=== PATIENT | male | born 1980 | race Caucasian/White ===

== ENCOUNTER 2019-12-03 20:03 | Emergency (ER) | payer SELFPAY ==
--- NOTE | 2019-12-03 20:09 | ED_ITS ---
Entered by Ashley May, acting as scribe for Ira Kerns MD HPI - Psych General: Stated Complaint: si Time Seen by Provider: 12/03/19 20:08 Coding Level of Care Code ED Professor Of Geology for Andreia Avalos
== END 2019-12-03 20:23 | disposition home or self-care (01) ==
LOC: ER 12-14 11:06
PROVIDERS: Emergency Provider Emergency Medicine
DX: Z53.21 Procedure and treatment not carried out due to patient leaving prior to being seen by health care provider (principal)
CPT/HCPCS: 99281

== ENCOUNTER 2019-12-03 20:24 | Inpatient (IN) | payer SELFPAY ==
[2019-12-03 21:11] VITALS: BP 129/90; PULSE 97; RESP 18; TEMP 37.1; O2SAT 99
[2019-12-03 21:14] VITALS: BMI 29.2
--- NOTE | 2019-12-03 21:59 | PC.NURSE ---
ADMISSION UPON ARRIVAL TO THE UNIT PT'S FAMILY BEGAN CALLING WANTING INFORMATION ON THE PT. PT HAD NOT FILLED OUT AUTHORIZATION TO RELEASE INFORMATION FORM OF YET. WHEN I TRIED TO EXPLAIN TO THE PT'S SISTER I COULD NOT CONFIRM OR DENY IF HER BROTHER WAS HERE, SHE BECAME VERY AGITATED TELLING ME I DID NOT NEED TO BE RUDE. I AGAIN TRIED TO EXPLAIN TO THE PT'S SISTER DUE TO PT PRIVACY/SAFETY I COULD NOT CONFIRM OR DENY IF PT IS HERE. I ASKED PT'S SISTER TO CALL BACK IN ABOUT 15 MINUTES. SHE BECAME VERY UPSET STATING THAT SHE WANTED TO TALK TO SOMEONE IN CHARGE. KELSIE PACKAGE COLLECTOR SPOKE TO FAMILY. ( SEE KELSIE'S NOTE) PT HAS BEEN AT THE NURSES STATION WANTING FIRST AND LAST NAMES AND TITLES AND BECOMING UPSET WHEN WE WOULD NOT GIVE HIM LAST NAMES. PT WAS OFFERED TRAZODONE FOR SLEEP AID BUT REFUSED STATING HE WAS ALLERGIC AFTER NKA WERE CONFIRMED WITH PATIENT. WILL CONTINUE TO MONITOR.
[2019-12-03 22:00] VITALS: BP 129/90; PULSE 97; RESP 18; TEMP 36.7; O2SAT 99
--- NOTE | 2019-12-03 22:17 | PC.NURSE ---
Patient had a family member call by the name of Laura but has a different [facility] name [facility] so stated can not confirm or deny.
[2019-12-03] MEDS: trazodone 50 mg Tablet PO (22:26)
[2019-12-03] MEDS: nicotine 2 mg Gum BUCCAL (22:26)
[2019-12-03] MEDS: LORazepam 2 mg Tablet PO (22:42)
--- NOTE | 2019-12-03 22:43 | PC.NURSE ---
PRN ATIVAN ATIVAN 2 MG PO GIVEN PER CIWA PROTOCOL. CIWA SCORE 12
--- NOTE | 2019-12-03 22:43 | PC.NURSE ---
Patient had a family member call and the AUGER PRESS OPERATOR did not have his HIPPA information which he had just signed. She requested to speak to charge nurse and I reassured her we have to protect patient privacy and now that have his permission we gave her information. Them 10 minutes later the Licensed Master Social Worker called and stated she had just called her and she gave her the same information.
[2019-12-03] MEDS: quetiapine 100 mg Tablet 200 MG PO (23:44)
--- NOTE | 2019-12-03 23:47 | PC.NURSE ---
PRN TRAZODONE 10/02/20 2289 PT REQUESTING PRN TRAZODONE FOR SLEEP. I VERIFIED WITH PT THAT HE WAS NOT ALLERGIC TO TRAZODONE AND HE ADMITTED HE LIED TO ME EARLY. HE IS NOT ALLERGIC TO TRAZOONE. PT RESTING QUIETLY IN BED, RESPIRATIONS EVEN AND UNLABORED. WILL CONTINUE TO MONITOR.
[2019-12-04 06:00] VITALS: BP 100/63; PULSE 77; RESP 19; TEMP 36.1; O2SAT 96
[2019-12-04] MEDS: hyDROXYzine 25 mg Capsule 50 MG PO ×2 (07:49→17:21)
[2019-12-04] MEDS: thiamine 100 mg Tablet PO (08:03)
[2019-12-04] MEDS: multivitamin therapeutic Tablet 1 TAB PO (08:03)
[2019-12-04] MEDS: folic acid 1 mg Tablet PO (08:03)
[2019-12-04] MEDS: citalopram 20 mg Tablet 40 MG PO (08:03)
[2019-12-04] MEDS: nicotine 2 mg Gum BUCCAL ×3 (09:05→17:24)
--- NOTE | 2019-12-04 09:05 | P.HP_ITS ---
Providers/Chief Complaint Admitting Physician: Pankaj Rowland MD Chief Complaint: SI HPI NPU History of Present Illness Chief complaint: I tried it on my own but it didn't work. I can't manage my job anymore. I'm a Functional alcoholic History of present illness:nivia Fontaine is a 39 year old male Who has been drinking regularly most of his life. It has worsened over month. He has endured significant losses. He is estranged from his and his 4-year-old daughter who lives in [place]. He came to live with his mother in [place] last year. 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 He has continued to maintain his level of function and maintain employment even while drinking on a daily basis. However 30 days ago, for unclear reasons, he began binge drinking. He has been living in a motel. He has been on a liquid diet drinking about a fifth of vodka daily. There have been times when it was his intent to drink himself to . He was hopeless and overwhelmed. He could not sleep at night without the use of Seroquel. He engages in no enjoyable activities. He is irritable. He is drunk most of the time. He is not able to assess the severity of his depressive symptoms compared to when he has been sober because he has not been sober for any considerable period of time most of his adult life. He was hospitalized for 1 week over 2 years ago. However he has never been into a rehabilitation program and has never participated in any type of formal program to attain and maintain sobriety. He denies active suicidal or homicidal ideation today. He does have a history of experiencing auditory and visual hallucinations when going through alcohol withdrawal. There is no history of seizures. His urine drug screen was positive for methamphetamine. He says he has used it a couple times in the past that it is not a regular activity and is not why he needs to help. Mental health history:He has 1 prior inpatient hospitalization 2 years ago for 1 week that was to establish his sobriety. However he did not have a follow-up treatment program and quickly went back to daily drinking. There is no history of suicide attempts. Family psychiatric history is negative. Social history:The patient grew up in [place]. His and daughter remain there. His mother lives in [place]. Legal history: The patient states that he has no outstanding warrants. Public record has multiple arrests From 1997 through 2013. There have been none since 2013. Arrest include 2 DWIs, 4 third degree domestic assault charges, Trespassing and resisting arrest.. Past medical history:The patient generally reports himself as being generally in good medical health.Drug screen was positive for amphetamines but otherwise clean. He is listed as having no active inpatient medications but reports that he had been taking Celexa and Seroquel in the past. He has no known drug allergies. CBC is within normal limits. Routine chemistries also within normal limits. WBC is mildly elevated at 13.6. Liver enzymes are generally within normal limits with the exception of a minimally elevated alkaline phosphatase of 135.Creatinine level is low at 0.6. Review of Systems Constitutional: Complains of: Fatigue Eyes: Complains of: No eye symptoms ENT/Mouth: Complains of: No ENTM symptoms Cardiovascular: Complains of: No cardiac symptoms Respiratory: Complains of: No respiratory symptoms GI: Complains of: No GI symptoms Neuro: Complains of: No neuro symptoms Musculoskeletal: Complains of: No musculoskeletal symptoms Skin: Complains of: No skin symptoms Hematologic/Lymphatic: Complains of: No hematologic/lymphatic symptoms Endocrine: Complains of: No endocrine symptoms : Complains of: No symptoms Psych: Complains of: Depression, Denied currentSuicide ideation Mental Status Exam: The patient is alert interpersonally engaged male appearing approximately his stated age. Eye contact is good. He is believed to be a reliable informant to the extent that information provided is internally consistent and generally consistent with that in the chart with the exception of legal history in the distant past. Appearance: hygiene is fair; no gross neurological deficits., gait is unremarkable; AIMS=0 Speech: Speech is of normal rate and rhythm and easily understood. Thought processes: Thought processes are abstract. Judgment is adequate for safety. Associations: intact Psychotic processes: There is no indication of guarding or paranoia. There is no attention to the internal stimuli. Auditory and visual hallucinations are denied. Judgment: Insight is fair. Problem solving skills are adequate for safety. Orientation: The patient is oriented to person, place time and situation. Memory: no deficits noted in immediate, intermediate, or remote spheres. Attention: The patient is alert and interpersonally engaged. Language: Verbalizations are coherent. Fund of knowledge: Fund of knowledge is adequate. Affect/Mood: Affect is consistent with a depressed mood. He denied current suicidal ideation Affective range Constricted Psychosis: perception unimpaired except through cognitive distortion; reality testing intact. 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 We initiated discussion regarding the need for a rehabilitation strategy but stated that this decision would be deferred until he were here for a couple of days and was in better medical condition and cognitive condition to make those judgments. Treatment plan: Due to the psychiatric conditions and treatment listed in the Assessment and Plan - the patient requires continued hospitalization. Will provide a safe and therapeutic environment for patient.. Will continue inpatient treatment to allow for medication adjustment and monitoring. Will continue q15 min safety checks. The intent this time is to manage his alcohol withdrawal. He has been placed on the CIWA protocol. In addition we will start lorazepam 1 mg 3 times a day and taper it over the next 4 days. Gabapentin 600 mg at bedtime and started to assist with sleep. Seroquel 100 mg is to be given as needed for hallucinations. Monitor patient's mood, sleep, appetite, and behavior closely. Encourage patient to participate in individual and group therapeutic sessions on the [facility]. Estimated length of stay 5 days The expected benefits and potential side effects of patient's psychiatric medications were discussed with the patient. The patient understands and consents to treatment.CRITERIA FOR DISCHARGE: stable on medications and no longer an imminent risk to self or others. Meds NPU Home Medications Medication Instructions Recorded Confirmed Type citalopram 40 mg PO DAILY 12/03/19 12/03/19 History hydroxyzine pamoate 100 mg PO QID 12/03/19 12/03/19 History quetiapine [Seroquel] 200 mg PO BEDTIME 12/03/19 12/03/19 History Allergies Allergy/AdvReac Type Severity Reaction Status Date / Time No Known Allergies Allergy Verified 12/03/19 21:18 PFS NPU PFSH: Social History Smoking and tobacco status: current every day smoker cigarettes Vitals/I&O/Wt Last Vital Signs Temp 96.9 F L 12/04/19 06:00 Pulse 77 12/04/19 06:00 Resp 19 H 12/04/19 06:00 BP 100/63 12/04/19 06:00 Pulse Ox 96 12/04/19 06:00 Weight last 48 hrs Weight 95.254 kg A&P Additional A&P Information Diagnoses: Alcohol dependence Alcohol intoxication 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 We initiated discussion regarding the need for a rehabilitation strategy but stated that this decision would be deferred until he were here for a couple of days and was in better medical condition and cognitive condition to make those judgments. Treatment plan: Due to the psychiatric conditions and treatment listed in the Assessment and Plan - the patient requires continued hospitalization. Will provide a safe and therapeutic environment for patient.. Will continue inpatient treatment to allow for medication adjustment and monitoring. Will continue q15 min safety checks. The intent this time is to manage his alcohol withdrawal. He has been placed on the CIWA protocol. In addition we will start lorazepam 1 mg 3 times a day and taper it over the next 4 days. Gabapentin 600 mg at bedtime and started to assist with sleep. Seroquel 100 mg is to be given as needed for hallucinations. Monitor patient's mood, sleep, appetite, and behavior closely. Encourage patient to participate in individual and group therapeutic sessions on the [facility]ov[facility]. Estimated length of stay 5 days The expected benefits and potential side effects of patient's psychiatric medications were discussed with the patient. The patient understands and consents to treatment.CRITERIA FOR DISCHARGE: stable on medications and no longer an imminent risk to self or others. Involuntary Hold Information 96 Hour Hold: 96 Hour Involuntary Admission: No Attestations NPU Medical Necessity Statement*: Patient will remain in the hospital for more nights for alcohol withdrawal protocol. Coding Level of Care Code Acute Data Technician for Andreia Avalos
[2019-12-04] MEDS: quetiapine 100 mg Tablet PO ×2 (09:30→21:51)
[2019-12-04] MEDS: LORazepam 1 mg Tablet PO ×3 (09:30→21:23)
[2019-12-04 14:00] VITALS: BP 142/94; O2SAT 98
[2019-12-04 21:09] VITALS: BP 112/73; PULSE 91; RESP 19; TEMP 37.1; O2SAT 95
[2019-12-04] MEDS: gabapentin 300 mg Capsule 600 MG PO (21:23)
[2019-12-04] MEDS: trazodone 50 mg Tablet PO (21:51)
[2019-12-05 06:00] VITALS: BP 117/88; PULSE 116; RESP 20; TEMP 36.6; O2SAT 93
[2019-12-05] MEDS: OLANZapine ODT 5 MG TABLET PO (06:21)
[2019-12-05] MEDS: multivitamin therapeutic Tablet 1 TAB PO (09:06)
[2019-12-05] MEDS: folic acid 1 mg Tablet PO (09:06)
[2019-12-05] MEDS: LORazepam 1 mg Tablet PO (09:06)
[2019-12-05] MEDS: thiamine 100 mg Tablet PO (09:06)
[2019-12-05] MEDS: quetiapine 100 mg Tablet PO (09:21)
--- NOTE | 2019-12-05 09:21 | PC.NURSE ---
Addendum entered by Cindy Rosa LPN 12/05/19 12:01: prn med effective no further c/o anxiety Original Note: PRN SEROQUEL 100 MG GIVEN PO PER PT C/O INCREASED ANXIETY. TEARFUL AT THE NURSES STATION. WILL CONT TO MONITOR
[2019-12-05] MEDS: hyDROXYzine 25 mg Capsule 50 MG PO (12:20)
--- NOTE | 2019-12-05 12:20 | PC.NURSE ---
Addendum entered by Cindy Rosa LPN 12/05/19 13:44: prn med effective no further c/o anxiety, pt asleep in bed in room currently Original Note: PRN VISTARIL 50 MG GIVEN PO PER PT C/O ANXIETY. WILL CONT TO MONITOR
[2019-12-05 13:55] VITALS: BP 110/64; PULSE 110; RESP 19; TEMP 36.8; O2SAT 95
--- NOTE | 2019-12-05 14:51 | PM.NPN ---
Subjective NPU Subjective: Interval history: I feel very badly. I need something to keep me going on my journey. I don't want to get angry and t hen leave in the middle like the other times. Wants more Ativanand then seroquel 200 mg at bedtime. Mental Status Exam MSE Comments: Mental Status Exam: The patient is alert interpersonally engaged male appearing approximately his stated age. Eye contact is good. He is believed to be a reliable informant to the extent that information provided is internally consistent and generally consistent with that in the chart with the exception of legal history in the distant past. Appearance: hygiene is fair; no gross neurological deficits., gait is unremarkable; AIMS=0 Speech: Speech is of normal rate and rhythm and easily understood. Thought processes: Thought processes are abstract. Judgment is adequate for safety. Associations: intact Psychotic processes: There is no indication of guarding or paranoia. There is no attention to the internal stimuli. Auditory and visual hallucinations are denied. Judgment: Insight is fair. Problem solving skills are adequate for safety. Orientation: The patient is oriented to person, place time and situation. Memory: no deficits noted in immediate, intermediate, or remote spheres. Attention: The patient is alert and interpersonally engaged. Language: Verbalizations are coherent. Fund of knowledge: Fund of knowledge is adequate. Affect/Mood: Affect is consistent with a depressed mood. He denied current suicidal ideation Affective range Constricted Psychosis: perception unimpaired except through cognitive distortion; reality testing intact. 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 We initiated discussion regarding the need for a rehabilitation strategy but stated that this decision would be deferred until he were here for a couple of days and was in better medical condition and cognitive condition to make those judgments. Treatment plan: Due to the psychiatric conditions and treatment listed in the Assessment and Plan - the patient requires continued hospitalization. Will provide a safe and therapeutic environment for patient.. Will continue inpatient treatment to allow for medication adjustment and monitoring. Will continue q15 min safety checks. The intent this time is to manage his alcohol withdrawal. He has been placed on the CIWA protocol. In addition we will start lorazepam 1 mg 3 times a day and taper it over the next 4 days. Gabapentin 600 mg at bedtime and started to assist with sleep. Seroquel 100 mg is to be given as needed for hallucinations. HD#2: not clear why he got 5 mg of zypreexa this morning and 100 mg of Seroquel this morning but would explin much of him feeling badly all day. PLAN: Add Seroquel 200 mg at bedtime, celexa 20 mg at bedtime, cpntinue lorazepam 1 mg tid, seroquel 25 mg tid, stop gabapentin. stop olanzapine Monitor patient's mood, sleep, appetite, and behavior closely. Encourage patient to participate in individual and group therapeutic sessions on the [place]ovall. Estimated length of stay 5 days The expected benefits and potential side effects of patient's psychiatric medications were discussed with the patient. The patient understands and consents to treatment.CRITERIA FOR DISCHARGE: stable on medications and no longer an imminent risk to self or others. Involuntary Hold Information 96 Hour Hold: 96 Hour Involuntary Admission: No Attestations NPU Medical Necessity Statement*: will conntinue in hospital 2-3 more nights for medication changes. Coding Level of Care Code Acute Laboratory Development Technician for Andreia Avalos
[2019-12-05] MEDS: LORazepam 2 mg Tablet PO (15:05)
[2019-12-05] MEDS: quetiapine 25 mg Tablet PO ×2 (15:07→20:03)
[2019-12-05] MEDS: nicotine 2 mg Gum BUCCAL (15:09)
[2019-12-05] MEDS: quetiapine 100 mg Tablet 200 MG PO (20:02)
[2019-12-05] MEDS: gabapentin 300 mg Capsule 600 MG PO (20:02)
[2019-12-05] MEDS: citalopram 20 mg Tablet PO (20:03)
[2019-12-05] MEDS: LORazepam 0.5 mg Tablet PO (20:03)
[2019-12-05 21:33] VITALS: BP 123/85; PULSE 107; RESP 22; TEMP 36.7; O2SAT 94
[2019-12-06 06:00] VITALS: BP 124/84; PULSE 113; RESP 20; TEMP 36.6; O2SAT 94
[2019-12-06] MEDS: hyDROXYzine 25 mg Capsule 50 MG PO (06:14)
[2019-12-06] MEDS: nicotine 2 mg Gum BUCCAL ×5 (07:55→20:50)
[2019-12-06] MEDS: LORazepam 0.5 mg Tablet PO ×3 (08:18→20:47)
[2019-12-06] MEDS: multivitamin therapeutic Tablet 1 TAB PO (08:18)
[2019-12-06] MEDS: quetiapine 25 mg Tablet PO ×6 (08:18→20:47)
[2019-12-06] MEDS: thiamine 100 mg Tablet PO (08:18)
[2019-12-06] MEDS: folic acid 1 mg Tablet PO (08:18)
[2019-12-06] MEDS: quetiapine 100 mg Tablet PO ×2 (11:49→18:02)
--- NOTE | 2019-12-06 12:43 | P.PN_ITS ---
Subjective NPU Subjective: Interval history: PAtient continues to be medication seeking wanting his lorazepam a nd seroquel to be increased to qid. HE is working on placement. Funding for services and medications is an issue. Mental Status Exam MSE Comments: Mental Status Exam: The patient is alert interpersonally engaged male appearing approximately his stated age. Eye contact is good. He is deepak eved to be a reliable informant to the extent that information provided is internally consistent and generally consistent with that in the chart with the exception of legal history in the distant past. Appearance: hygiene is fair; no gross neurological deficits., gait is unremarkable; AIMS=0 Speech: Speech is of normal rate and rhythm and easily understood. Thought processes: Thought processes are abstract. Judgment is adequate for safety. Associations: intact Psychotic processes: There is no indication of guarding or paranoia. There is no attention to the internal stimuli. Auditory and visual hallucinations are denied. Judgment: Insight is fair. Problem solving skills are adequate for safety. Orientation: The patient is oriented to person, place time and situation. Memory: no deficits noted in immediate, intermediate, or remote spheres. Attention: The patient is alert and interpersonally engaged. Language: Verbalizations are coherent. Fund of knowledge: Fund of knowledge is adequate. Affect/Mood: Affect is consistent with a depressed mood. He denied current suicidal ideation Affective range Constricted Psychosis: perception unimpaired except through cognitive distortion; reality testing intact. Cognition: Patient Appearance: Appropriate Ability to Follow Directions: Good Patient Orientation (long list): Person, Place and Name Comprehension Ability: No Impairment Hallucination Type: None Delusion Description: Not Present Thought Process: Appropriate Affect: Affect Description: Appropriate Behavior: Patient Behavior: Appropriate Speech Pattern: Appropriate and Clear Vitals/I&O/Wt Last Vital Signs Temp 97.8 F 12/06/19 06:00 Pulse 113 H 12/06/19 06:00 Resp 20 H 12/06/19 06:00 BP 124/84 12/06/19 06:00 Pulse Ox 94 12/06/19 06:00 Weight last 48 hrs Weight 101.423 kg A&P Additional A&P Information Diagnoses: Alcohol dependence Alcohol intoxication 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 We initiated discussion regarding the need for a rehabilitation strategy but stated that this decision would be deferred until he were here for a couple of days and was in better medical condition and cognitive condition to make those judgments. Treatment plan: Due to the psychiatric conditions and treatment listed in the Assessment and Plan - the patient requires continued hospitalization. Will provide a safe and therapeutic environment for patient.. Will continue inpatient treatment to allow for medication adjustment and monitoring. Will continue q15 min safety checks. The intent this time is to manage his alcohol withdrawal. He has been placed on the CIWA protocol. In addition we will start lorazepam 1 mg 3 times a day and taper it over the next 4 days. Gabapentin 600 mg at bedtime and started to assist with sleep. Seroquel 100 mg is to be given as needed for hallucinations. HD#2: not clear why he got 5 mg of zypreexa this morning and 100 mg of Seroquel this morning but would explin much of him feeling badly all day. PLAN: Add Seroquel 200 mg at bedtime, celexa 20 mg at bedtime, cpntinue lorazepam 1 mg tid, seroquel 25 mg tid, stop gabapentin. stop olanzapine HD#3: pt again educated about habit forming nature of medications for anxiety. Pt also educated on medications that would address alcohol craving. PLAN: increase Seroquel to 25 mg qid and start naltrexone 50 mg daily Monitor patient's mood, sleep, appetite, and behavior closely. Encourage patient to participate in individual and group therapeutic sessions on the [place]ov[place]. Estimated length of stay 5 days The expected benefits and potential side effects of patient's psychiatric medications were discussed with the patient. The patient understands and consents to treatment.CRITERIA FOR DISCHARGE: stable on medications and no longer an imminent risk to self or others. Involuntary Hold Information 96 Hour Hold: 96 Hour Involuntary Admission: No Attestations NPU Medical Necessity Statement*: Patient is a hospital another 2-3 weeks until we can find placement in guarantee tolerance and stability on naltrexone. Coding Level of Care Code Acute Oncology Transplant Network Manager for Andreia Avalos
[2019-12-06] MEDS: naltrexone hcl 50 mg Tablet PO (13:38)
[2019-12-06 13:47] VITALS: BP 127/76; PULSE 111; RESP 20; TEMP 36.6; O2SAT 97
--- NOTE | 2019-12-06 18:02 | PC.NURSE ---
PRN SEROQUEL 100 MG GIVEN PO PER PT C/O STATED ANXIETY PT MED SEEKING FOR ANY AND ALL MEDICATIONS HE CAN HAVE. ASKED THIS NURSE FOR HIS LORAZEPAM STAFF EDUCATED THAT HIS SCHEDULED ATIVAN WAS NOT CURRENTLY DUE. PT STATED IT'S PRN YOU CAN DENY ME MY SEROQUEL. THIS NURSE TOLD PT THAT HE WAS NOT BEING DENIED SEROQUEL, THAT HE HAD ASKED FOR ATIVAN. PRN SEROQUEL GIVEN REQUESTED. PT THEN TRIED TO TAKE A PEN FROM THE DESK. THIS NURSE REQUESTED PEN BACK, EDUCATED PT THAT PENS WERE NOT ALLOWED FOR PT TO USE, PENCIL OFFERED. PT STATED OH YOUR DEFINATELY GETTING EMPLOYEE OF THE MONTH.
[2019-12-06 20:12] VITALS: BP 105/76; PULSE 98; RESP 18; O2SAT 96
[2019-12-06] MEDS: gabapentin 300 mg Capsule 600 MG PO (20:45)
[2019-12-06] MEDS: quetiapine 100 mg Tablet 200 MG PO (20:46)
[2019-12-06] MEDS: citalopram 20 mg Tablet PO (20:47)
[2019-12-07 06:00] VITALS: BP 127/71; PULSE 111; RESP 19; TEMP 36.5; O2SAT 96
[2019-12-07] MEDS: hyDROXYzine 25 mg Capsule 50 MG PO (06:00)
[2019-12-07] MEDS: acetaminophen 325 mg Tablet 650 MG PO (07:04)
[2019-12-07] MEDS: naltrexone hcl 50 mg Tablet PO (08:19)
[2019-12-07] MEDS: nicotine 2 mg Gum BUCCAL ×3 (08:19→12:42)
[2019-12-07] MEDS: folic acid 1 mg Tablet PO (08:19)
[2019-12-07] MEDS: thiamine 100 mg Tablet PO (08:19)
[2019-12-07] MEDS: LORazepam 0.5 mg Tablet PO (08:19)
[2019-12-07] MEDS: quetiapine 25 mg Tablet PO ×2 (08:19→12:42)
[2019-12-07] MEDS: multivitamin therapeutic Tablet 1 TAB PO (08:19)
[2019-12-07] MEDS: quetiapine 100 mg Tablet PO (10:06)
--- NOTE | 2019-12-07 10:06 | PC.NURSE ---
Addendum entered by Cindy Rosa LPN 12/07/19 11:25: prn med effective no further c/o anxiety pt lying in bed eyes closed towel over eyes, appears asleep. resp even et unlabored Original Note: PRN SEROQUEL 100 MG GIVEN PO PER PT C/O STATED ANXIETY. NO OUTWARD S/S OF ANXIETY NOTED. WILL CONT TO MONITOR.
--- NOTE | 2019-12-07 11:46 | PC.SOCIAL ---
ride by the [employer] coming at approx. 1:00 going to [facility] in [place]. [facility], according to staff worker Chin. He will leave with his 1 month supply of medications.
--- NOTE | 2019-12-07 12:50 | P.DS_ITS ---
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 I can't manage my job anymore. I'm a Functional alcoholic History of present illness:nivia Fontaine is a 39 year old male Who has been drinking regularly most of his life. It has worsened over month. He has endured significant losses. He is estranged from his and his 4-year-old daughter who lives in [place]. He came to live with his mother in [place] last year. 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 He has continued to maintain his level of function and maintain employment even while drinking on a daily basis. However 30 days ago, for unclear reasons, he began binge drinking. He has been living in a motel. He has been on a liquid diet drinking about a fifth of vodka daily. There have been times when it was his intent to drink himself to . He was hopeless and overwhelmed. He could not sleep at night without the use of Seroquel. He engages in no enjoyable activities. He is irritable. He is drunk most of the time. He is not able to assess the severity of his depressive symptoms compared to when he has been sober because he has not been sober for any considerable period of time most of his adult life. He was hospitalized for 1 week over 2 years ago. However he has never been into a rehabilitation program and has never participated in any type of formal program to attain and maintain sobriety. He denies active suicidal or homicidal ideation today. He does have a history of experiencing auditory and visual hallucinations when going through alcohol withdrawal. There is no history of seizures. His urine drug screen was positive for methamphetamine. He says he has used it a couple times in the past that it is not a regular activity and is not why he needs to help. Mental health history:He has 1 prior inpatient hospitalization 2 years ago for 1 week that was to establish his sobriety. However he did not have a follow-up treatment program and quickly went back to daily drinking. There is no history of suicide attempts. Family psychiatric history is negative. Social history:The patient grew up in [place]. His and daughter remain there. His mother lives in [place]. Legal history: The patient states that he has no outstanding warrants. Public record has multiple arrests From 1997 through 2013. There have been none since 2012. Arrest include 2 DWIs, 4 third degree domestic assault charges, Trespassing and resisting arrest.. Past medical history:The patient generally reports himself as being generally in good medical health.Drug screen was positive for amphetamines but otherwise clean. He is listed as having no active inpatient medications but reports that he had been taking Celexa and Seroquel in the past. He has no known drug allergies. CBC is within normal limits. Routine chemistries also within normal limits. WBC is mildly elevated at 13.6. Liver enzymes are generally within normal limits with the exception of a minimally elevated alkaline phosphatase of 135.Creatinine level is low at 0.6. Review of Systems Constitutional: Complains of: Fatigue Eyes: Complains of: No eye symptoms ENT/Mouth: Complains of: No ENTM symptoms Cardiovascular: Complains of: No cardiac symptoms Respiratory: Complains of: No respiratory symptoms GI: Complains of: No GI symptoms Neuro: Complains of: No neuro symptoms Musculoskeletal: Complains of: No musculoskeletal symptoms Skin: Complains of: No skin symptoms Hematologic/Lymphatic: Complains of: No hematologic/lymphatic symptoms Endocrine: Complains of: No endocrine symptoms : Complains of: No symptoms Psych: Complains of: Depression, Denied currentSuicide ideation Mental Status Exam: The patient is alert interpersonally engaged male appearing approximately his stated age. Eye contact is good. He is believed to be a reliable informant to the extent that information provided is internally consistent and generally consistent with that in the chart with the exception of legal history in the distant past. Appearance: hygiene is fair; no gross neurological deficits., gait is unremarkable; AIMS=0 Speech: Speech is of normal rate and rhythm and easily understood. Thought processes: Thought processes are abstract. Judgment is adequate for safety. Associations: intact Psychotic processes: There is no indication of guarding or paranoia. There is no attention to the internal stimuli. Auditory and visual hallucinations are denied. Judgment: Insight is fair. Problem solving skills are adequate for safety. Orientation: The patient is oriented to person, place time and situation. Memory: no deficits noted in immediate, intermediate, or remote spheres. Attention: The patient is alert and interpersonally engaged. Language: Verbalizations are coherent. Fund of knowledge: Fund of knowledge is adequate. Affect/Mood: Affect is consistent with a depressed mood. He denied current suicidal ideation Affective range Constricted Psychosis: perception unimpaired except through cognitive distortion; reality testing intact. 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 We initiated discussion regarding the need for a rehabilitation strategy but stated that this decision would be deferred until he were here for a couple of days and was in better medical condition and cognitive condition to make those judgments. Treatment plan: Due to the psychiatric conditions and treatment listed in the Assessment and Plan - the patient requires continued hospitalization. Will provide a safe and therapeutic environment for patient.. Will continue inpatient treatment to allow for medication adjustment and monitoring. Will continue q15 min safety checks. The intent this time is to manage his alcohol withdrawal. He has been placed on the CIWA protocol. In addition we will start lorazepam 1 mg 3 times a day and taper it over the next 4 days. Gabapentin 600 mg at bedtime and started to assist with sleep. Seroquel 100 mg is to be given as needed for hallucinations. HD#2: not clear why he got 5 mg of Zyprexa this morning and 100 mg of Seroquel this morning but would explain much of him feeling badly all day. PLAN: Add Seroquel 200 mg at bedtime, celexa 20 mg at bedtime, cpntinue lorazepam 1 mg tid, seroquel 25 mg tid, stop gabapentin. stop olanzapine HD#3: pt again educated about habit forming nature of medications for anxiety. Pt also educated on medications that would address alcohol craving. PLAN: increase Seroquel to 25 mg qid and start naltrexone 50 mg daily as his hospitalization progressed, he became more focused on CT increase to medication intervention. He had very little insight into the need for coping skills and utilization of coping skills to deal with difficult feelings rather than taking pharmaceuticals so that he would feel better. He had little insight into how this will be a problem down the road. Involuntary Hold Information 96 Hour Hold: 96 Hour Involuntary Admission: No Mental Status Exam MSE Comments: Discharge Mental Status Exam: Appearance: hygiene is good; no gross neurological deficits., gait is unremarkable; AIMS=0 Speech: Speech is of normal rate and rhythm and easily understood. Thought processes: Thought processes are abstract. Judgment is adequate for safety. Associations: intact Psychotic processes: There is no indication of guarding or paranoia. There is no attention to the internal stimuli. Auditory and visual hallucinations are denied. Judgment: Insight is fair. Problem solving skills are adequate for safety. Orientation: The patient is oriented to person, place time and situation. Memory: no deficits noted in immediate, intermediate, or remote spheres. Attention: The patient is alert and interpersonally engaged. Language: Verbalizations are coherent. Fund of knowledge: Fund of knowledge is adequate. Affect/Mood: Affect is consistent with a euthymic mood. denied suicidal ideation Affective range is appropriate. Psychosis: perception unimpaired except through cognitive distortion; reality testing intact. Discharge Data Vitals: Last Vital Signs Temp 97.7 F 12/07/19 06:00 Pulse 111 H 12/07/19 06:00 Resp 19 H 12/07/19 06:00 BP 127/71 12/07/19 06:00 Pulse Ox 96 12/07/19 06:00 Discharge Plan Discharge Patient Disposition: Home, Self-Care Condition: Stable Prescriptions: New quetiapine 25 mg Tablet 25 mg PO QID Qty: 120 RF: 0 naltrexone 50 mg Tablet 50 mg PO DAILY Qty: 30 RF: 3 quetiapine 100 mg Tablet 200 mg PO BEDTIME Qty: 30 RF: 3 citalopram 20 mg Tablet 20 mg PO BEDTIME Qty: 30 RF: 4 lorazepam 0.5 mg Tablet 0.5 mg PO TID Qty: 90 RF: 0 gabapentin 300 mg Capsule 600 mg PO BEDTIME Qty: 60 RF: 0 folic acid 1 mg Tablet 1 mg PO DAILY Qty: 30 RF: 0 Discontinued hydroxyzine pamoate 50 mg Capsule 100 mg PO QID RF: 0 citalopram 40 mg Tablet 40 mg PO DAILY RF: 0 quetiapine [Seroquel] 200 mg Tablet 200 mg PO BEDTIME RF: 0 Discharge Orders: Discharge Order (Routine); Ordered 12/07/19 Ordered By: Francesco Coffey Discharge Diet: Usual diet Discharge Activity: Increase activity as tolerated Activity Restrictions/Additional Instructions: You will be going to [facility] for their Gnosticist Program. [place] [employer] [facility] [address] [place] [address] Gnosticist Chaplain [address] [facility] ([facility]) [facility] No call-ahead is necessary, just walk in and be seen. Bring your I.D. and insurance information self-pay on a sliding scale for those who qualify. [facility] Hours: Friday-Friday, 7:30 a.m. to 3:30 p.m. [facility] Address: [address], [place] [address] Discharge Attestations NPU Time Spent in Discharge Care*: greater than 30 min Coding Level of Care Code Acute Outside Upholsterer for Andreia Avalos
[2019-12-07 12:56] VITALS: BP 127/71; PULSE 111; RESP 19; TEMP 36.5; O2SAT 96
== END 2019-12-07 13:06 | disposition home or self-care (01) | DRG 897 ==
PROVIDERS: Admitting Provider Psychiatry & Neurology Psychiatry; Visit Provider Psychiatry & Neurology Psychiatry
DX: F10.229 Alcohol dependence with intoxication, unspecified (principal); F32.2 Major depressive disorder, single episode, severe without psychotic features; F10.239 Alcohol dependence with withdrawal, unspecified; F17.210 Nicotine dependence, cigarettes, uncomplicated
CPT/HCPCS: 12345